=== PATIENT | male | born 2005 | race Caucasian/White ===

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

== ENCOUNTER 2024-02-26 19:26 | Emergency (ER) | payer OTHER ==
[2024-02-26 19:42] VITALS: BP 114/62; PULSE 67; RESP 18; TEMP 97.8; BMI 32.8
== END 2024-02-26 21:24 | disposition home or self-care (01) ==
LOC: JER 19:26
DX: R06.02 Shortness of breath (principal); T75.1XXA Unspecified effects of drowning and nonfatal submersion, initial encounter
CPT/HCPCS: 71046-TC-FY; 93005; 93010; 99284-25